=== PATIENT | male | born 1995 | race Caucasian/White ===

== ENCOUNTER 2021-05-07 00:31 | Emergency (ER) | payer SELFPAY ==
[2021-05-07] MEDS ORDERED: HYDROcodone/Acetaminophen 5/325 mg Tablet ONE (01:50)
== END 2021-05-07 02:55 | disposition home or self-care (01) ==
LOC: MADERS 00:31
DX: S92.322A Displaced fracture of second metatarsal bone, left foot, initial encounter for closed fracture (principal); S92.332A Displaced fracture of third metatarsal bone, left foot, initial encounter for closed fracture; S80.212A Abrasion, left knee, initial encounter; W55.19XA Other contact with horse, initial encounter; Y93.52 Activity, horseback riding
CPT/HCPCS: 28470